=== PATIENT | male | born 2000 | race Caucasian/White ===

== ENCOUNTER 2018-11-27 14:12 | Emergency (ER) | payer MEDICAID ==
[~2018-11-27] VITALS: Ht 167.6 cm; Wt 54.0 kg
[2018-11-27 14:58] VITALS: BP 141/65
== END 2018-11-27 15:02 | disposition home or self-care (01) ==
LOC: ER 14:13
DX: F41.8 Other specified anxiety disorders (principal); F32.9 Major depressive disorder, single episode, unspecified; F43.9 Reaction to severe stress, unspecified
CPT/HCPCS: 99284